=== PATIENT | female | born 1940 | race Hispanic/Latino ===

== ENCOUNTER 2019-07-25 06:18 | Observation (INO) | payer MEDICARE ==
[2019-07-23 11:59] LABS: BASOPHILS # (AUTO) 0.1 (0.0-0.1); BASOPHILS % 0.5 % (0.0-1.0); EOSINOPHILS # (AUTO) 0.2 (0.0-0.4); EOSINOPHILS % 1.6 % (0.0-6.0); HEMATOCRIT 44.2 % (34.2-44.1); HEMOGLOBIN 14.6 g/dL (12.0-16.0); LYMPHOCYTES # (AUTO) 3.7 (1.0-3.2); LYMPHOCYTES % 38.4 % (18.0-39.1); MEAN CORPUSCULAR HEMOGLOBIN 28.9 pg (28-32); MEAN CORPUSCULAR VOLUME 87.4 fL (81-99); MONOCYTES # (AUTO) 0.6 (0.2-0.8); MONOCYTES % 6.5 % (4.4-11.3); NEUTROPHILS # (AUTO) 5.1 (2.1-6.9); NEUTROPHILS % 52.7 % (38.7-80.0); PLATELET COUNT 178 x10e3/uL (140-360); RED BLOOD COUNT 5.06 x10e6/uL (3.6-5.1); RED CELL DISTRIBUTION WIDTH 13.3 % (11.7-14.4)
[2019-07-23 12:09] LABS: INR 1.01; PROTHROMBIN TIME 13.9 seconds (11.9-14.5)
[2019-07-23 12:10] LABS: PARTIAL THROMBOPLASTIN TIME 27.6 seconds (23.8-35.5)
[2019-07-23 12:16] LABS: ANION GAP 12.2 mmol/L (8-16); CALCIUM 10.1 mg/dL (8.4-10.2); CREATININE, SERUM 1.42 mg/dL (0.57-1.11); POTASSIUM 4.2 mmol/L (3.5-5.1)
--- NOTE | 2019-07-23 12:43 | Diagnostic Imaging Report ---
EXAMINATION: CHEST 2 VIEWS INDICATION: Pre-operative COMPARISON: None FINDINGS: LINES/TUBES:None LUNGS:The lungs are well-inflated. No focal consolidation or pulmonary edema. PLEURA:No pleural effusion or pneumothorax. MEDIASTINUM:The cardiomediastinal silhouette appears normal in size and shape. BONES/SOFT TISSUES:No acute osseous injury. ABDOMEN:No free air under the diaphragm. IMPRESSION: No focal pneumonia or pulmonary edema. Signed by: Alan Payton MD on 07/23/2019 12:40 PM
[~2019-07-25] VITALS: Ht 154.9 cm; Wt 93.2 kg
--- NOTE | 2019-07-25 | NUR ---
PATIENT IS RESTING IN STABLE CONDITION, NO SIGNS OF DISTRESS NOTED. PATIENT IS UR[place] SPEAKING AND VOICES NO PAIN AT THIS TIME. IV FLUIDS ARE RUNNING AT ORDERED RATE AND PATIENT WAS INTERPRETED TO CALL FOR ASSISTANCE TO BEDSIDE COMMODE. BED IS IN LOWEST POSITION, BOTH SIDE RAILS ARE UP, CALL LIGHT WITHIN REACH, WILL CONTINUE TO MONITOR. Addendum: 07/26/19 at 0749 by Forrest Esparza RN TIME [id number]/25/2019
[~2019-07-25 06:18] MED LIST: BACLOFEN10 MG PO; BENICAR20 MG PO; CETIRIZINE HCL5 MG PO; CHLORTHALIDONE25 MG PO; CLONIDINE HCL0.1 MG PO; CRESTOR10 MG PO; CYMBALTA30 MG PO; FUROSEMIDE40 MG PO; JARDIANCE25 MG PO; METOPROLOL SUCC50 MG PO; NIFEDIPINE ER30 M1 PO; PLAVIX75 MG PO; ULTRAM 50MG50 MG PO
--- OUTSIDE RECORDS SUMMARY | 2019-07-25 06:19 | XMS REPORT ---
Author Author [facility] Address Unknown Phone Unavailable Care Team Providers Care Sanitation Superintendent Name Role Phone MADELYN MCKENZIE Unavailable Unavailable Payers Payer Name Policy Type Policy Number Effective Date Expiration Date Problems This patient has no known problems. Allergies, Adverse Reactions, Alerts Allergy Name Allergy Type Status Severity Reaction(s) Onset Date Inactive Date Treating Clinician Comments penicillin G DA Active U 2014-12-20 00:00:00 Medications This patient has no known medications. Results Test Description Test Time Test Comments Text Results Atomic Results Result Comments CHEST 2 VIEWS 2019-07-23 12:40:00 [place] [id number] Patient Name: ONOFRE MONK MR #: [id number] : 1940 Age/Sex: 79/F Req #: [id number] Adm Physician: Ordered by: MADELYN MCKENZIE MD Report #: [id number] Location: OR Room/Bed: Procedure: [id number] DX/CHEST 2 VIEWS Exam Date: 07/23/19 Exam Time: 1200 REPORT STATUS: Signed EXAMINATION: CHEST 2 VIEWS INDICATION: Pre-operative COMPARISON: None FINDINGS: LINES/TUBES:None LUNGS:The lungs are well-inflated. No focal consolidation or pulmonary edema. PLEURA:No pleural effusion or pneumothorax. MEDIASTINUM:The cardiomediastinal silhouette appears normal in size and shape. BONES/SOFT TISSUES:No acute osseous injury. ABDOMEN:No free air under the diaphragm. IMPRESSION: No focal pneumonia or pulmonary edema. Signed by: Semaj Adame MD on 07/23/2019 12:40 PM Dictated By: SEMAJ ADAME MD 1240 Transcribed By: GIL Hernandez on 07/23/19 1240 COPY TO: MADELYN MCKENZIE MD
[2019-07-25] MEDS ORDERED: LIDOCAINE 1% W/EPINEPHRINE 20 ML VIAL ONE (06:46)
[2019-07-25] MEDS ORDERED: THROMBIN FOR SOLN 5,000 UNIT VIAL ONE (06:46)
[2019-07-25] MEDS ORDERED: BACITRACIN 50,000 UNIT VIAL ONE (06:46)
[2019-07-25] MEDS ORDERED: ACETAMINOPHEN 1000 MG/100 ML 100 ML IV ONE (07:17)
[2019-07-25] MEDS ORDERED: LIDOCAINE HCL (LTA) 4 ML SOLN ONE (07:17)
[2019-07-25] MEDS ORDERED: IBUPROFEN 800MG/ 200ML 200 ML IV ONE (07:17)
[2019-07-25] MEDS ORDERED: VANCOMYCIN 1GM/NS 250 ML 250 ML ONE (07:46)
[2019-07-25] MEDS ORDERED: ACETAMINOPHEN 325 MG TAB PO PRN (10:15)
[2019-07-25] MEDS ORDERED: MORPHINE SULFATE 5 MG/ML VIAL IM PRN (10:15)
[2019-07-25] MEDS ORDERED: MAGNESIUM/ALUMINUM/SIMETHICONE 30 ML UDC PO PRN (10:15)
[2019-07-25] MEDS ORDERED: HYDROMORPHONE 2MG/ML 2 MG/ML ML IV PRN (10:15)
[2019-07-25] MEDS ORDERED: CARISOPRODOL 350 MG TAB PO PRN (10:15)
[2019-07-25] MEDS ORDERED: TRAMADOL HCL 50 MG TAB PO PRN (10:15)
[2019-07-25] MEDS ORDERED: PROMETHAZINE HCL (IM) 25 MG/ML VIAL IM PRN (10:15)
[2019-07-25] MEDS ORDERED: ONDANSETRON HCL INJ 2MG/ML 2ML 2 MG/ML VIAL IV PRN (10:15)
--- NOTE | 2019-07-25 13:07 | Operative Report ---
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 PROCEDURES: Right L3-4 laminotomy, medial facetectomy, and microsurgical lateral recess decompression, 01248. ANESTHESIA: General. INDICATIONS: The patient is a 79-year-old woman, who presents with low back pain and radicular pain in the right leg. She is found to have right L3-4 lateral recess stenosis primarily due to facet and ligamentous hypertrophy, superimposed on a chronic disk osteophyte eccentric to the right. She was taken to surgery for microsurgical lateral recess decompression. PROCEDURE IN DETAIL: After induction of general anesthesia, the patient was placed on the operating table in the prone position over a Cali frame. Lumbar region was prepped and draped in sterile fashion. A preoperative x-ray was obtained. A small midline incision was created. Lumbar fascia was opened to the right of midline and subperiosteal dissection was carried out to expose the right side of the L3 and L4 lamina and the medial aspect of the L3-4 facet joint. A second x-ray confirmed correct localization. The operating microscope was brought in. A high-speed drill equipped with a ann bur was used to drill the inferior aspect of lamina of L3 and the medial rim of the L3-4 hypertrophic facet joint and superior rim of the lamina of L4. The hypertrophic ligamentum flavum was resected and the dural sac and the L4 traversing nerve roots were fully exposed and decompressed. The nerve root was then slightly retracted medially. The epidural veins were bipolar coagulated and underlying disk was examined. No acute disk herniation was noted. A shallow chronic disk bulge was noted, which was not further violated at this point. Excellent decompression of the nerve root had been achieved by virtue of the laminotomy and lateral recess decompression. The wound was copiously irrigated with bacitracin solution. Meticulous hemostasis was secured. The retractor was removed. Lumbar fascia was closed with 0 Vicryl suture. Subcutaneous layer was closed with 2-0 Vicryl sutures. The skin was closed with 3-0 Monocryl sutures in subcuticular fashion. Steri-Strips and dressing were applied. The patient was awakened, extubated, and taken to postanesthesia care unit in stable condition. No intraoperative complications were encountered. ESTIMATED BLOOD LOSS: 10 mL. Edward Sorto MD PP/SANAM /[id number]
[2019-07-25] MEDS ORDERED: GLYCOPYRROLATE INJ 0.2 MG/ML VIAL ONE (13:58)
[2019-07-25] MEDS ORDERED: SEVOFLURANE INHAL SOLN 250 ML PEN BTL ONE (13:58)
[2019-07-25] MEDS ORDERED: ONDANSETRON HCL INJ 2MG/ML 2ML 2 MG/ML VIAL ONE (13:58)
[2019-07-25] MEDS ORDERED: DEXAMETHASONE SOD PHOS INJ 4 MG/ML VIAL ONE (13:58)
[2019-07-25] MEDS ORDERED: LIDOCAINE HCL 2% LOCAL INJ 5 ML SDV VIAL INJ ONE (13:58)
[2019-07-25] MEDS ORDERED: NEOSTIGMINE 1 MG/ML 10ML VIAL ONE (13:58)
[2019-07-25] MEDS ORDERED: ROCURONIUM BROMIDE 10 MG/ML 5ML VIAL ONE (13:58)
[2019-07-25] MEDS ORDERED: PROPOFOL IV EMULSION 10 MG/ML 20 ML VIAL ONE (13:58)
--- NOTE | 2019-07-25 16:09 | NUR ---
Recvd patient from PACU, AAOx3, Bengali speaking, daughter at bed side, assisted her to rest room, back in recliner , not in any distress, keep monitoring
[2019-07-25 16:30] VITALS: BP 153/89
[2019-07-25] MEDS: LACTATED RINGER'S 1,000 ML IV SCH (16:45)
[2019-07-25] MEDS: OXYCODONE/ACETAMINOPHEN 5-325 1 EACH TABLET PO PRN (17:18)
[2019-07-25 18:01] VITALS: BP 153/89
[2019-07-25 20:00] VITALS: BP 140/65
[2019-07-25] MEDS ORDERED: CHLORTHALIDONE 25 MG TAB PO SCH (21:00)
[2019-07-25] MEDS ORDERED: METOPROLOL SUCCINATE 25 MG TAB XL PO SCH (21:00)
[2019-07-25] MEDS ORDERED: SIMVASTATIN 20 MG TAB PO SCH (21:00)
[2019-07-25] MEDS ORDERED: CLONIDINE HCL 0.1 MG TAB PO SCH (21:00)
[2019-07-25] MEDS ORDERED: BACLOFEN 10 MG TAB PO SCH (21:00)
[2019-07-25] MEDS ORDERED: ZOLPIDEM TARTRATE 5 MG TAB PO PRN (21:00)
[2019-07-25 21:45] VITALS: BP 140/65
[2019-07-25] MEDS: VANCOMYCIN 1GM/NS 250 ML 250 ML IV SCH (21:48)
[2019-07-26] VITALS: BP 182/79
--- NOTE | 2019-07-26 01:00 | NUR ---
PATIENT'S IV WAS INFILTRATED ON RIGHT HAND. IV PUMP TURNED OFF IMMEDIATELY AND IV REMOVED FROM SIGHT. WARM COMPRESSES APPLIED TO PATIENT. NEW IV SIGHT STARTED ON RIGHT FOREARM, IT IS PATENT AND INTACT.
[2019-07-26] MEDS: LACTATED RINGER'S 1,000 ML IV SCH (02:45)
[2019-07-26 04:00] VITALS: BP 157/70
[2019-07-26] MEDS: OXYCODONE/ACETAMINOPHEN 5-325 1 EACH TABLET PO PRN (05:24)
[2019-07-26] MEDS: VANCOMYCIN 1GM/NS 250 ML 250 ML IV SCH (08:00)
[2019-07-26 08:28] VITALS: BP 119/54
[2019-07-26] MEDS ORDERED: FUROSEMIDE 20 MG TAB PO SCH (09:00)
[2019-07-26] MEDS ORDERED: OLMESARTAN 20 MG TAB PO SCH (09:00)
[2019-07-26] MEDS ORDERED: DULOXETINE HCL 30 MG DELAYED RELEASE PO SCH (09:00)
[2019-07-26] MEDS ORDERED: HOME MEDICATION--PATIENTS OWN PO SCH (09:00)
[2019-07-26] MEDS ORDERED: NIFEDIPINE CR 30 MG TAB PO SCH (09:00)
--- NOTE | 2019-07-26 09:30 | NUR ---
Dressing removed from patient's lower back. Small amount of drainage noted with steristrip covering incision. daughter shown incision on patient's back and instructed if amount of old drainage present increases to notify surgeon once home.
--- NOTE | 2019-07-26 09:40 | NUR ---
Patient discharged. IV removed- dressing applied and bleeding controlled. Discharge instructions and prescription given to patient's daughter. Patient and her daughter denied any further questions. Patient ambulated to daughters personal vehicle with all belongings with no issue.
== END 2019-07-26 09:36 | disposition home or self-care (01) ==
LOC: OR 06:18 → PACU V 10:13 → MED/SURG 16:22
PROVIDERS: ADMIT Neurological Surgery; ATTEND Neurological Surgery
DX: M51.16 Intervertebral disc disorders with radiculopathy, lumbar region (principal); M48.062 Spinal stenosis, lumbar region with neurogenic claudication; Z88.0 Allergy status to penicillin; I10 Essential (primary) hypertension; M81.0 Age-related osteoporosis without current pathological fracture; E78.5 Hyperlipidemia, unspecified; E11.9 Type 2 diabetes mellitus without complications; Z86.73 Personal history of transient ischemic attack (TIA), and cerebral infarction without residual deficits; Z01.810 Encounter for preprocedural cardiovascular examination; Z01.812 Encounter for preprocedural laboratory examination; Z01.811 Encounter for preprocedural respiratory examination
CPT/HCPCS: 36415 ×2; 63047; 71046; 72020; 80048; 82948; 85025; 85610; 85730; 86850; 86900; 88304; 93005; G0378 ×2; J0131; J1100; J2001; J2405; J2704; J2710; J3370; J7121